=== PATIENT | female | born 1990 | race African-American/Black ===

== ENCOUNTER 2020-06-13 12:59 | Observation (INO) | payer OTHER ==
[2020-06-13 13:31] VITALS: TEMP 98.3; BMI 32.4
[2020-06-13 13:56] LABS: #Eosinphils 0.9 thou/uL (0.0-0.7); #Lymphocytes 2.4 thou/uL (1.20-3.40); #Monocytes 0.8 thou/uL (0.11-0.59); #Neutrophils 7.5 thou/uL (1.40-6.50); %Basophils 0.3 % (0.0-1.0); %Lymphocytes 20.1 % (21.0-51.0); %Monocytes 7.1 % (0.0-10.0); %Neutrophils 64.5 % (42.0-75.0); Hemoglobin 13.7 g/dL (12.0-16.0); Mean Corpuscular HGB CONC 33.5 g/dL (32.0-36.0); Mean Corpuscular Hemoglobin 29.6 pg (27.0-31.0); Mean Corpuscular Volume 88.4 fL (78.0-98.0); Mean Platelet Volume 7.5 fL (7.4-10.4); Platelet Count 391 thou/uL (130-400); RBC Distribution Width 12.2 % (11.5-14.5); Red Blood Cell (RBC) Count 4.64 mill/uL (4.20-5.40); White Blood Cell (WBC) Count 11.7 thou/uL (4.8-10.8)
[2020-06-13] MEDS: Lactated Ringer's 1,000 ML IV SCH ×2 (14:13→23:40)
[2020-06-13 14:17] LABS: ALT (SGPT) 16 U/L (8-55); AST (SGOT) 15 U/L (5-34); Albumin 3.2 g/dL (3.5-5.0); Alkaline Phosphatase 308 U/L (40-110); Anion Gap 14 mmol/L (10-20); BUN (Urea Nitrogen) 8 mg/dL (7.0-18.7); Bilirubin, Total 0.2 mg/dL (0.2-1.2); Calc. Creatinine Clearance 162 mL/min (70-130); Calcium 9.2 mg/dL (7.8-10.44); Carbon Dioxide 22 mmol/L (22-29); Chloride 103 mmol/L (98-107); Globulin 3.4 g/dL (2.4-3.5); Glucose 78 mg/dL (70-105); Potassium 3.9 mmol/L (3.5-5.1); Protein, Total 6.6 g/dL (6.0-8.3); Sodium 135 mmol/L (136-145)
[2020-06-13] MEDS ORDERED: Ondansetron PF 4 MG/2 ML Vial IVP PRN (14:20)
[2020-06-13] MEDS ORDERED: hydrALAZINE 20 MG/ML VIAL SLOW IVP PRN (14:20)
[2020-06-13] MEDS ORDERED: Promethazine HCl 25 MG/ML VIAL IM PRN (14:20)
[2020-06-13 14:21] VITALS: BP 172/102
[2020-06-13] MEDS: hydrALAZINE 20 MG/ML VIAL ONE ×3 (14:21→20:34)
[2020-06-13] MEDS ORDERED: Magnesium Sulfate 20 gm/500 ml 20 GM/500 ML BAG ONE (15:23)
[2020-06-13] MEDS ORDERED: Betamet Acet/Betamet Na Ph 30 MG/5 ML VIAL ONE (15:23)
[2020-06-13 15:58] LABS: Creatinine, Urine 59.85 mg/dL (47-110)
[2020-06-13 16:10] LABS: Medtox Reader # READER 1; THC/Cannabinoid Screen Not Detected (NotDetected)
[2020-06-13 16:11] LABS: Amphetamine Not Detected (NotDetected); Barbiturates Screen Not Detected (NotDetected); Benzodiazepine Screen Not Detected (NotDetected); Cocaine Metabolite Screen Not Detected (NotDetected); Medtox Control Line Valid? VALID (VALID); Methadone Not Detected (NotDetected); Methamphetamine Not Detected (NotDetected); Opiate Screen Not Detected (NotDetected); Oxycodone Screen Not Detected (NotDetected); Phencyclidine (PCP) Not Detected (NotDetected); Tricyclic Screen Not Detected (NotDetected)
[2020-06-13] MEDS ORDERED: Labetalol HCl 100 MG/20 ML VIAL ONE (16:18)
[2020-06-13] MEDS ORDERED: Labetalol HCl 100 MG/20 ML VIAL SLOW IVP PRN (16:23)
--- NOTE | 2020-06-13 16:59 | PDOC.LDHP ---
Labor and Delivery H&P HPI: 30 y/o at 28 and 1/7 weeks, with EDC of 09/04/2020, who presents form Clinic for elevated BP of 160/106 and 2+ Urine Protein (new finding). Several SBP on L&D were in the 170s after arrival. She is known to have a large 10cm posterior uterine fibroid, and has been followed by Dr. Michael Mera MD at [facility] in [place]. At the hospital, protein to creatinine ration is elevated at 0.4 today. Alk Phos is 308. AST/ALT are normal. CBC is WNL. Patient has received hydralazine and labetalol and Magnesium Sulfate was given at 4g load/2g per hour. Clinic ultrasound today showed a weight of 1 pound, 14 ounces or 14th percentile for growth (borderline for IUGR). ELIECER looked normal. FHTs are reassuring for 28 weeks. Of note, patient has been prescribed Procardia XL 60mg po qDay, but appears to take it at different times each day, and some level of non-compliance is suspected. She states she did not take her Procardia XL today. Drug screen negative in office, and negative again today on L&D. Due date: 09/04/20 Grav: 1 Para: 0 Current medications: pre- vitamins Allergies/Adverse Reactions: Allergies Allergy/AdvReac Type Severity Reaction Status Date / Time No Known Allergies Allergy Verified 06/13/20 13:24 Social history: none - Physical Exam General: NAD, resting Heart: RRR Lungs: CTAB Abdomen: gravid Extremeties: no edema FHT: category 1 - Plan Plan: other (1. Chronic Hypertension with superimposed preeclampsia with severe features 2. Borderline IUGR with normal ELIECER and reassuring FHTs 3. Large single posterior uterine fibroid Plan: 1. Magnesium Sulfate started 2. Bethamethasone 12mg IM given today (1st dose) 3. Transfer to [place] initiated)
[2020-06-13] MEDS ORDERED: Acetaminophen 325 MG TAB PO SCH (19:45)
[2020-06-14 01:44] LABS: SARS-CoV-2 MS2 Positive; SARS-CoV-2 N Gene Negative; SARS-CoV-2 S Gene Negative; SARS-CoV-2 by NAA Not Detected (NotDetected); SARS-CoV-2 orf1ab Negative
== END 2020-06-13 21:00 | disposition short-term general hospital (02) ==
LOC: L&D/OP 12:59 → L&D 17:11
PROVIDERS: ADMIT Obstetrics & Gynecology; ATTEND Obstetrics & Gynecology
DX: O10.913 Unspecified pre-existing hypertension complicating pregnancy, third trimester (principal); O34.593 Maternal care for other abnormalities of gravid uterus, third trimester; D25.9 Leiomyoma of uterus, unspecified; O36.5930 Maternal care for other known or suspected poor fetal growth, third trimester, not applicable or unspecified; Z3A.28 28 weeks gestation of pregnancy
CPT/HCPCS: 36415; 51702; 80053; 80306; 82570; 84156; 85025; 87635; 96372; 96374; 96375; 96376; 99285; G0378; J0360; J0702; J3475; U0003